=== PATIENT | male | born 1985 | race African-American/Black ===

== ENCOUNTER 2020-07-09 18:39 | Emergency (ER) | payer MEDICAID, MEDICARE ==
[~2020-07-09] VITALS: Ht 170.2 cm; Wt 86.4 kg
[2020-07-09] MEDS ORDERED: normal saline 1000ML IV soln IVB ONE (19:25)
[2020-07-09] MEDS ORDERED: ondansetron/PF 4mg/2ml inj IV ONE (19:25)
[2020-07-09] MEDS ORDERED: predniSONE 20 mg tablet PO ONE (19:25)
[2020-07-09 19:39] LABS: COLOR,URINE YELLOW (Yellow); GLUCOSE, URINE NEGATIVE (Neg); KETONES,URINE 40 mg/dl (Neg); LEUKOCYTE ESTERASE ,URINE NEGATIVE (Neg); NITRITES, URINE NEGATIVE (Neg); OCCULT BLOOD,URINE NEGATIVE (Neg); PROTEIN,URINE 30 mg/dl (Neg); UROBILINOGEN,URINE 0.2 E.U/dL (0.2-1.0)
[2020-07-09 19:39] LABS: BASOPHILS % (AUTO) 0.3 % (0-1); EOSINOPHILS % (AUTO) 0.6 % (0-6); LYMPHOCYTES # (AUTO) 1.6 X10'3 (1.1-4.8); NEUTROPHILS # (AUTO) 5.6 X10'3 (1.8-7.7); RED CELL DISTRIBUTION WIDTH 16.8 % (11.5-14.5); WHITE BLOOD COUNT 8.2 X10'3 (4.5-11.0)
[2020-07-09 19:41] LABS: HEMATOCRIT 43.3 % (42.0-52.0); HEMOGLOBIN 14.5 g/dl (14.0-17.9); LYMPHOCYTES % (AUTO) 18.9 % (21-51); MEAN CORPUSCULAR HEMOGLOBIN 27.7 PG (27.0-31.0); MEAN CORPUSCULAR HGB CONC 33.4 g/dL (33.0-36.5); MEAN PLATELET VOLUME 8.6 FL (7.4-10.4); MONOCYTES % (AUTO) 12.2 % (2-12); PLATELET COUNT 366 X10'3 (140-440); RED BLOOD COUNT 5.22 X10'6 (4.70-6.10)
[2020-07-09 19:46] LABS: UA COLLECTION TYPE CLN CATCH MIDSTREAM
[2020-07-09 19:47] LABS: BACTERIA,URINE FEW /HPF (Neg); CLARITY,URINE SLIGHTLY CLOUDY (Clear); MUCUS STRANDS MANY /LPF (Neg); RBC,URINE 0-2 /HPF (0-2); SQUAMOUS EPITHELIAL CELL,UR FEW /LPF (FEW); WBC,URINE 0-4 /HPF (0-4)
[2020-07-09 19:57] LABS: ALANINE AMINOTRANSFERASE 17 U/L (12-78); ALBUMIN 3.5 G/DL (3.4-5.0); ALBUMIN/GLOBULIN RATIO 0.8 (1.1-1.5); ALKALINE PHOSPHATASE 100 IU/L (46-116); ANION GAP 13 (8-16); ASPARTATE AMINO TRANSFERASE 14 U/L (10-37); BILIRUBIN,TOTAL 0.2 MG/DL (0.1-1.0); BLOOD UREA NITROGEN 14 MG/DL (7-18); BUN/CREATININE RATIO 12.5 (5.4-32.0); CALCIUM 9.2 MG/DL (8.5-10.1); CHLORIDE 104 MMOL/L (99-107); CREATININE 1.12 MG/DL (0.60-1.10); GLUCOSE 178 MG/DL (70-104); LIPASE 72 U/L (73-393); SODIUM 140 MMOL/L (135-145); TOTAL CARBON DIOXIDE 23.1 MMOL/L (24-32); eGFR 89 ML/MIN
[2020-07-09 19:58] LABS: POTASSIUM 3.4 MMOL/L (3.5-5.1)
[2020-07-09 20:14] VITALS: BP 120/83
[2020-07-09] MEDS ORDERED: potassium Cl 20 mEq SR tablet PO ONE (20:15)
[2020-07-09] MEDS ORDERED: PRED10TA23 PO (20:17)
[2020-07-09] MEDS ORDERED: acetaminophen 325mg tablet PO ONE (20:20)
[2020-07-09 21:21] LABS: ANISOCYTOSIS 1+; LARGE PLATELETS FEW; PLATELET ESTIMATE NORMAL
== END 2020-07-09 20:31 | disposition home or self-care (01) ==
LOC: ER 18:39
DX: K51.911 Ulcerative colitis, unspecified with rectal bleeding (principal); F12.90 Cannabis use, unspecified, uncomplicated; Z88.0 Allergy status to penicillin
CPT/HCPCS: 36415; 80053; 81001; 83690; 85008; 85025; 96361; 96374; 99283; J2405; J7030; J7512